=== PATIENT | male | born 1980 | race Caucasian/White ===

== ENCOUNTER 2020-03-17 16:29 | Emergency (ER) | payer OTHER ==
[~2020-03-17] VITALS: Ht 177.8 cm; Wt 132.9 kg
[2020-03-17 17:24] LABS: BASOPHILS % (AUTO) 1 % (0-1); EOSINOPHILS % (AUTO) 2 % (1-7); LYMPHOCYTES % (AUTO) 17 % (22-44); MEAN CORPUSCULAR HEMOGLOBIN 34.4 pg (27.5-34.5); MEAN CORPUSCULAR HGB CONC 33.4 g/dL (33.2-36.2); MEAN PLATELET VOLUME 9.8 fL (7.4-10.4); MONOCYTES % (AUTO) 8 % (2-9); NEUTROPHILS % (AUTO) 73 % (42-75); PLATELET COUNT 197 x10^3/uL (130-400); RED CELL DISTRIBUTION WIDTH 13.6 % (9.4-14.8)
[2020-03-17 17:27] LABS: MD MORPH REVIEW ONLY
[2020-03-17 17:32] LABS: MICROSCOPIC NOT IND
[2020-03-17 17:35] LABS: ALANINE AMINOTRANSFERASE 120 U/L (12-78); ANION GAP 5 mmol/L (5-15); CALCIUM 9.2 mg/dL (8.5-10.1); CHLORIDE 104 mmol/L (98-107); CREATININE 1.12 mg/dL (0.7-1.3)
[2020-03-17 17:36] LABS: ALKALINE PHOSPHATASE 71 U/L (45-117); BILIRUBIN,TOTAL 1.1 mg/dL (0.2-1.0)
[2020-03-17 18:30] LABS: OVALOCYTES 1+; POLYCHROMASIA 1+
[2020-03-17] MEDS ORDERED: SODIUM CHLORIDE 0.9% 1,000 ML IV ONE (18:30)
[2020-03-17 18:32] LABS: <PLATELET ESTIMATE> ADEQUATE; <PLT MORPHOLOGY> NORMAL PLT MORPH
[2020-03-17 18:44] VITALS: BP 119/68
--- NOTE | 2020-03-17 18:46 | NUR ---
IV STARTED, NS INFUSING. WAITING FOR CT. 08/12 PAIN WHEN SUPINE. WORSE WHEN SITS UP OR MOVES. RQ, RLQ PAIN. VSS. CALL LIGHT IN REACH. AIDET PROVIDED.
[2020-03-17] MEDS ORDERED: OMNIPAQUE 350 MG/ML, 100ML BOTTLE ONE (19:19)
--- NOTE | 2020-03-17 20:45 | NUR ---
NO CHANGE IN ASSESSMENT, NO COMPLAINTS NOW. VSS. WAITING FOR MD RE-EVAL.
[2020-03-17] MEDS ORDERED: SULFAMETH./TRIMETHOPRIM DS 800MG/160MG TABLET PO ONE (21:00)
[2020-03-17] MEDS ORDERED: metroNIDAZOLE 500 MG TABLET PO ONE (21:00)
[2020-03-17] MEDS ORDERED: SULFAMETH./TRIMETHOPRIM DS 800MG/160MG TABLET ONE (21:07)
[2020-03-17] MEDS ORDERED: metroNIDAZOLE 500 MG TABLET ONE (21:07)
== END 2020-03-17 21:17 | disposition home or self-care (01) ==
LOC: ED 21:10
DX: K57.32 Diverticulitis of large intestine without perforation or abscess without bleeding (principal); F17.200 Nicotine dependence, unspecified, uncomplicated
CPT/HCPCS: 36415; 74177; 80053; 81003; 85025; 96360; 96361; 99285; J7030; Q9967